=== PATIENT | female | born 1965 | race Caucasian/White ===

== ENCOUNTER → 2018-05-10 | Outpatient (CLI) | payer SELFPAY ==
[~2018-05-10] MED LIST: METH4TAB PO; MOME15CR17 TP; SULF1TAB35 PO
--- NOTE | 2018-05-10 13:12 | Diagnostic Imaging Report ---
PROCEDURE: MRI left joint lower extremity without contrast. TECHNIQUE: Multiplanar, multisequence non contrast-enhanced MRI of the left lower extremity was accomplished. INDICATION: Left knee pain and catching for six to seven weeks. No known injury. COMPARISON: None. FINDINGS: No acute fracture is seen in the left knee. Alignment appears normal. There are moderate-sized tricompartmental osteophytes present. Large subcortical cyst like changes are seen in the patellofemoral compartment, particularly laterally. There is a large subcortical cyst like change underlying the intercondylar eminence as well. A small joint effusion is seen in the left knee. Advanced degenerative changes are also seen at the proximal tibiofibular joint. There is complete joint space loss overlying the lateral facet of the patella as well as the lateral trochlea. The remainder of the patellar articular cartilage demonstrates heterogeneity, thinning, surface irregularity. The marginal osteophytes of the medial femoral condyle extending anteriorly to the trochlea. The medial compartment articular cartilage demonstrates marked heterogeneity moderate thinning, with near full-thickness defect at the central aspect of the medial femoral condyle measuring 7 mm. The articular cartilage in the lateral compartment demonstrates heterogeneity, thinning and surface irregularity with no large full-thickness defect seen. There appears to be a horizontal tear extending to the intra-articular surface of the body/posterior horn of the medial meniscus. There is increased signal at the anterior horn of the lateral meniscus, which may represent intrasubstance degeneration. No discrete tear seen extending to the articular surface. The anterior and posterior cruciate ligaments are intact. The medial collateral ligament appears intact. The lateral collateral ligamentous complex is intact. The extensor mechanism is intact. There is mild edema in Hoffa's fat pad and anterior subcutaneous fat. No drainable fluid collections are seen. The soft tissues are otherwise unremarkable. IMPRESSION: 1. Tricompartmental degenerative changes and cartilage loss in the left knee, severe in the patellofemoral compartment. 2. Horizontal tear at the medial meniscus. 3. Small left knee joint effusion. Dictated by: Dictated on workstation # [id number]
== END ==
LOC: RAD 10:14
PROVIDERS: ATTEND Physician Assistant
DX: S83.242A Other tear of medial meniscus, current injury, left knee, initial encounter (principal); M17.12 Unilateral primary osteoarthritis, left knee
CPT/HCPCS: 73721

== ENCOUNTER → 2018-05-27 | Outpatient (CLI) | payer SELFPAY ==
--- NOTE | 2018-05-27 09:03 | Diagnostic Imaging Report ---
INDICATION: Low back pain radiating into the left leg. TIME OF EXAMINATION: 09:03 a.m. FINDINGS: Three views of the lumbar spine were obtained. Curvature and alignment is normal. Vertebral body heights are maintained. Disc spaces are preserved. No fracture or subluxation is identified. IMPRESSION: No acute bony abnormality is detected. Dictated by: Dictated on workstation # [id number]
== END ==
LOC: RAD 08:25
PROVIDERS: ATTEND Nurse Practitioner Family
DX: M54.16 Radiculopathy, lumbar region (principal)
CPT/HCPCS: 72100

== ENCOUNTER → 2018-06-02 | Outpatient (CLI) | payer SELFPAY ==
--- NOTE | 2018-06-02 16:48 | Diagnostic Imaging Report ---
PROCEDURE: MRI lumbar spine. TECHNIQUE: Multiplanar, multisequence MRI of the lumbar spine was performed without contrast. INDICATION: Low back pain. COMPARISON: Lumbar spine radiographs 05/27/2018. FINDINGS: There are 5 lumbar type vertebral bodies. Normal alignment. Vertebral body heights preserved. Modic type I degenerative endplate changes, greatest at L5-S1. Bone marrow signal is otherwise unremarkable. No abnormal signal in the conus which terminates at L1. Normal morphology of the cauda equina. Mild to moderate scattered degenerative endplate changes result in no substantial spinal canal or lateral recess narrowing. Disc space height loss and facet arthropathy contribute to mild to moderate neuroforaminal narrowing on the right at L4-L5 and on the left at L5-S1. No acute findings in the visualized abdomen or pelvis. IMPRESSION: 1. Mild to moderate degenerative endplate changes resulting in scattered low-grade neuroforaminal narrowing as above. No high-grade neural impingement. 2. No acute osseous findings in the lumbar spine. Dictated by: Dictated on workstation # [id number]
== END ==
LOC: RAD 11:15
DX: M47.27 Other spondylosis with radiculopathy, lumbosacral region (principal); M99.73 Connective tissue and disc stenosis of intervertebral foramina of lumbar region
CPT/HCPCS: 72148